=== PATIENT | male | born 1985 | race Hispanic/Latino ===

== ENCOUNTER 2017-09-27 11:29 | Emergency (ER) | payer SELFPAY ==
[2017-09-27] MEDS ORDERED: Lidocaine 1% 20 ML MDV ONE (11:43)
[2017-09-27] MEDS ORDERED: Bacitracin Zinc 1 Packet ONE (11:52)
[2017-09-27] MEDS ORDERED: Adacel (T-DAP) 0.5 ML VIAL ONE (12:01)
== END 2017-09-27 12:14 | disposition home or self-care (01) ==
LOC: NAV ERS 11:29
DX: S91.312A Laceration without foreign body, left foot, initial encounter (principal); W29.3XXA Contact with powered garden and outdoor hand tools and machinery, initial encounter
CPT/HCPCS: 12002; 90471; 90715; J2001

== ENCOUNTER 2019-01-15 20:01 | Emergency (ER) | payer BC, SELFPAY ==
[2019-01-15] MEDS ORDERED: Benzonatate 100 MG CAP ONE (20:26)
--- NOTE | 2019-01-15 20:42 | RAD ---
XR Chest Pa Lat STANDARD HISTORY: Cough COMPARISON: None FINDINGS: The heart size is normal. The lungs are well expanded without focal areas of consolidation, pneumothorax or pleural effusions. IMPRESSION: No radiographic evidence of acute cardiopulmonary process.
== END 2019-01-15 20:51 | disposition home or self-care (01) ==
LOC: NAV ERS 20:01
DX: J10.1 Influenza due to other identified influenza virus with other respiratory manifestations (principal); Z79.899 Other long term (current) drug therapy
CPT/HCPCS: 71046

== ENCOUNTER 2019-07-11 15:31 | Emergency (ER) | payer BC ==
[2019-07-11] MEDS ORDERED: Lidocaine 1% (PF) 30 ML VIAL ONE (16:47)
[2019-07-11] MEDS ORDERED: Cephalexin 250 MG CAP ONE (16:52)
[2019-07-11] MEDS ORDERED: Bacitracin 1 PK ONE (17:35)
--- NOTE | 2019-07-11 17:43 | RAD ---
RADIOGRAPH LEFT SECOND AND THIRD DIGITS THREE VIEWS: 07/11/2019 HISTORY: A 34-year-old male status post acute laceration to second and third digits. FINDINGS: No radiopaque foreign body visualized. No displaced fracture identified. Questionable nondisplaced ve rtically oriented fracture at the third distal tuft. No other osseous abnormality. No radiopaque fore ign body. Focal soft tissue swelling and cutaneous defect at the volar aspect at the level of the nec k of the third middle phalanx. IMPRESSION: 1. Acute traumatic soft tissue laceration of the third digit. 2. No displaced fracture. 3. Questionable nondisplaced fracture versus normal trabecular line at the third distal tuft. POS: [facility]
== END 2019-07-11 17:58 | disposition home or self-care (01) ==
LOC: NAV ERS 15:31
DX: S61.211A Laceration without foreign body of left index finger without damage to nail, initial encounter (principal); S61.213A Laceration without foreign body of left middle finger without damage to nail, initial encounter; S64.493A Injury of digital nerve of left middle finger, initial encounter; I10 Essential (primary) hypertension; Z79.899 Other long term (current) drug therapy; W26.8XXA Contact with other sharp object(s), not elsewhere classified, initial encounter
CPT/HCPCS: 12002; J2001